=== PATIENT | female | born 1975 | race Caucasian/White ===

== ENCOUNTER 2017-01-30 07:54 | Emergency (ER) | payer SELFPAY ==
[~2017-01-30] VITALS: Ht 165.1 cm; Wt 175.0 kg
[~2017-01-30 07:54] MED LIST: ASPI325T6 PO; ASPIRIN 81M81 MG/TA2 PO; ASPIRIN E.C. 8181 MG PO; EPA FISH OIL1000 MG PO; NITRO-DUR0.4 MG/PAT TD; TOPROL XL 25MG25 MG PO; ZOCOR 10MG10 MG PO
[2017-01-30 07:57] VITALS: BP 165/93; TEMP 98
[2017-01-30] MEDS ORDERED: ULTRAM 50MG TAB50 MG PO ×2 (08:01→08:37)
[2017-01-30 09:07] VITALS: PULSE 87
== END 2017-01-30 09:07 | disposition home or self-care (01) ==
LOC: COL.ER 07:54
DX: G89.29 Other chronic pain (principal); M25.562 Pain in left knee; F17.210 Nicotine dependence, cigarettes, uncomplicated; E66.01 Morbid (severe) obesity due to excess calories; Z68.44 Body mass index [BMI] 60.0-69.9, adult; Z90.49 Acquired absence of other specified parts of digestive tract; Z95.818 Presence of other cardiac implants and grafts; Z79.82 Long term (current) use of aspirin

== ENCOUNTER → 2017-03-03 | Outpatient (CLI) | payer BC ==
[~2017-03-03] MED LIST changes: +ULTRAM 50MG TAB50 MG PO
== END ==
LOC: COL.RAD 07:17
DX: S83.232A Complex tear of medial meniscus, current injury, left knee, initial encounter (principal); M17.12 Unilateral primary osteoarthritis, left knee; M25.462 Effusion, left knee; M25.762 Osteophyte, left knee